=== PATIENT | male | born 1940 | race African-American/Black ===

== ENCOUNTER 2017-01-07 17:32 | Emergency (ER) | payer OTHER ==
--- NOTE | 2017-01-07 18:53 | PROVIDER DOCUMENTATION ---
HPI-Male Problem - General Chief Complaint: Urinary Retention Stated Complaint: BLOOD IN CATH Time Seen by Provider: 01/07/17 18:44 Source: patient Allergies/Adverse Reactions: Patient Allergies Allergy/AdvReac Type Severity Reaction Status Date / Time No Known Allergies Allergy Verified 01/07/17 17:36 Home Medications: Home Medication List Medication Instructions Recorded Confirmed Last Taken Type Enalapril Maleate 1 tab PO BID 01/07/17 01/07/17 01/07/17 History - History of Present Illness-Male Nature of Presenting Problem: 76 y/o AAM c family as historians, c/o blood from the delgado catheter. He has a history of prostate cancer, and has home health to come change his delgado weekly. Had it changed this morning and there has been nothing but blood flowing from it. Not currently on any blood thinners. Patient has advanced dementia and cannot answer any questios, including locations of pain Review of Systems - Adult - REVIEW OF SYSTEMS - ADULT ROS:: ROS per family Constitutional: reports: no symptoms reported. denies: chills, fever, fatique Eyes: reports: no symptoms reported. denies: decreased vision, blurred vision, double vision, eye pain Ears, Nose, Mouth & Throat: reports: no symptoms reported. denies: ear pain, nose pain, throat pain Cardiovascular: reports: no symptoms reported. denies: chest pain, palpitations Respiratory: reports: no symptoms reported. denies: cough, shortness of breath Gastrointestinal: reports: no symptoms reported. denies: abdominal pain, diarrhea, nausea, vomiting Genitourinary: reports: see HPI, hematuria Musculoskeletal: reports: no symptoms reported. denies: bone pain, back pain Integumentary: reports: no symptoms reported Neurological: reports: no symptoms reported. denies: headache/migraines Psychiatric: reports: no symptoms reported Endocrine: reports: no symptoms reported Hematologic/Lymphatic: reports: no symptoms reported Allergic/Immunologic: reports: no symptoms reported All Other Systems: Reviewed and Negative Past History - Adult - PAST MEDICAL HISTORY-ADULT Review of Records: reports: Old Records Reviewed, Nursing Assessment Review, Medications Reviewed Major Childhood Illnesses: reports: denies history Cardiovascular: reports: HTN Respiratory: reports: denies history Gastrointestinal: reports: denies history Genitourinary: reports: prostate cancer Musculoskeletal: reports: denies history 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) Endocrine/Immune: reports: denies history Other Conditions: reports: denies history - PRIOR SURGERIES/PROCEDURES Surgical/Procedure History: reports: none - IMMUNIZATION STATUS Childhood Immunizations: See Nurse Assessment Flu Vaccine: See Nurse Assessment - FAMILY HISTORY Family History: reviewed, not pertinent - SOCIAL HISTORY Smoking: denies Substance Use: none/never Alcohol Use Frequency: never Physical Exam-General - PHYSICAL EXAM-ADULT Initial Vital Signs Reviewed: Yes - CONSTITUTIONAL General Appearance: no apparent distress, thin - EYES Eyes: PERRL/EOMI, pink conjunctivae - HEAD, EARS, NOSE, MOUTH & THROAT HENMT: normocephalic/atraumatic - NECK Neck: normal inspection - RESPIRATORY Respiratory: chest non-tender, lungs clear, normal breath sounds, no pleuratic chest pain, no respiratory distress, no accessory muscle use. negative: respiratory distress, decreased breath sounds, accessory muscle use, crackles, rales, rhonchi, wheezing - CARDIOVASCULAR Cardiovascular: normal peripheral pulses, regular rate, rhythm - GASTROINTESTINAL (ABDOMEN) Abdominal Exam: normal bowel sounds, non tender, soft, no organomegaly, no pulsatile mass. negative: abnormal bowel sounds, distended, guarding, rigid, rebound, tenderness - GENITOURINARY Male Genitalia: other (no bleeding from the urethral meatus. There is gross hematuria from the delgado catheter in place) - MUSCULOSKELETAL Extremity: normal range of motion - SKIN Integumentary: normal color, normal turgor, warm/dry - NEUROLOGIC Neurologic: grossly normal, no motor/sensory deficits Progress - PLAN OF CARE/RESULTS Progress/Plan/Lab Results: Dr Everett brought to bedside on initial appearance, agreed we needed to call Dr. White before proceeding. Vital Signs Temp Pulse Resp BP Pulse Ox 01/07/17 22:00 92 H 18 154/065 01/07/17 17:37 98.2 F 114 H 18 160/94 99 No Known Allergies Allergy (Verified 01/07/17 17:36) NKDA Enalapril Maleate 1 tab PO BID 01/07/17 I&O 01/06/17 01/07/17 01/08/17 06:59 06:59 06:59 Output Total 0 Balance 0 Laboratory 01/07/17 01/07/17 01/07/17 19:05 19:05 18:55 WBC 11.24 H RBC 4.57 L Hgb 12.5 L Hct 38.5 L MCV 84.2 MCH 27.4 MCHC 32.5 L RDW Std Deviation 14.7 H Plt Count 478 H MPV 8.8 Immature Gran % (Auto) 0.2 Neut % (Auto) 84.0 H Lymph % (Auto) 9.2 L [place] % (Auto) 6.1 Eos % (Auto) 0.2 Baso % (Auto) 0.3 Immature Gran # (Auto) 0.02 Neut # (Auto) 9.45 H Lymph # (Auto) 1.03 L [place] # (Auto) 0.69 H Eos # (Auto) 0.02 Baso # (Auto) 0.03 Sodium 143 Potassium 3.6 Chloride 107 Carbon Dioxide 20 L Anion Gap 17 BUN 13 Creatinine 1.5 H Estimated GFR/1.73 m2 45 BUN/Creatinine Ratio 9 Glucose 101 Calculated Osmolality 285 Calcium 8.9 Total Bilirubin 0.30 AST 20 ALT 20 Alkaline Phosphatase 92 Total Protein 7.2 Albumin 3.5 Globulin 4.0 Albumin/Globulin Ratio 1.0 Urine Source CATH Orders Category Date Time Status Bladder Scan and Record Result ORDERED Care 01/07/17 18:30 Active Delgado Cath Discontinuation ONCE Care 01/07/17 19:02 Active Delgado Cath Insertion ORDERED Care 01/07/17 19:02 Active Misc. NRSG Communication Order DIRECTED Care 01/07/17 21:07 Active Saline Loc NOW Care 01/07/17 18:48 Active CBC WITH ELECTRONIC DIFF [HEME] Stat Lab 01/07/17 19:05 Completed CMP [COMPREHENSIVE METABOLIC PANEL] [CHEM] Stat Lab 01/07/17 19:05 Completed UA [URINALYSIS PL W/POSS RFLX CULT] [URINALYSIS] Stat Lab 01/07/17 18:55 Results 0.9% Sodium Chloride Inj [Ns] 250 ml Med 01/07/17 20:57 Discontinued .ROUTE As Directed 0.9% Sodium Chloride Inj [Ns] 250 ml Med 01/07/17 23:41 Discontinued IV As Directed Lidocaine 2% Jelly Appl [Xylocaine 2% Jelly Uroject] Med 01/07/17 19:44 Discontinued 10 ml .ROUTE .STK-MED ONE - REASSESSMENT Reassessment #1 Time Reassessed: 21:08 (after new delgado inserted, flushed, no longer bleeding. will f/u with urology ) Status: improving - CONSULTS/PCP/HOSPITALIST Notification #1 *Consult/PCP/Hospitalist*: Dr. White Time Discussed: 19:07 Reason/Comments: gross hematuria with delgado Consult Disposition: other (remove current delgado, place a new one, go past the hub, flush well with NS) Departure - Departure Time of Disposition Order: 21:08 DIAGNOSIS: Hematuria Delgado catheter problem Qualifiers: Encounter type: initial encounter Qualified Code(s): T83.9XXA - Unspecified complication of genitourinary prosthetic device, implant and graft, initial encounter Disposition: HOME 01 Certified Medical Emergency: Emergent Condition: Stable Additional Instructions: Follow up with your urologist, Dr. Neves ED Follow Up Instructions: You have been treated by a care provider in the Emergency Department. These instructions are being provided to you so you can have an understanding of how to care for yourself upon discharge. Upon discharge from the Emergency Department, you are responsible for making arrangements for follow-up care by a physician of your choice. Take all prescribed medications as directed. Return to the Emergency Department immediately for any new or worsening symptoms. You may call the Physician Referral phone number at [phone] to obtain a list of Physicians who are taking new patients. Referrals: Kai Morales MD [Primary Care Provider] - Rodney Neves MD [STAFF PHYSICIAN] - Instructions: Delgado Catheter Care, Adult, [id number], Hematuria, Adult Attestation - Physician/ KIMBERLEY Attestation Patient care was provided by Advanced Practice Provider:: Yes Advanced Practice Provider:: Jazmin Epstein Advanced Practice Provider documentation review:: The Mid-level provider documentation, treatment plan and medical decision making was reviewed by the physician who agrees with all treatment and medical decision making by the MLP. The physician spent face to face time with patient:: Yes Advanced Practice Provider documentation review:: The physician spent face to face time with this patient and agrees with all MLP documentation, treatment, and medical decision making by the MLP. See provider notes for further information.
[2017-01-07 19:11] LABS: MANUAL DIFF NEEDED? NO
[2017-01-07 19:15] LABS: BASO% 0.3 % (0.0-0.8); EOS# 0.02 X1000 (0.0-0.7); EOS% 0.2 % (0.0-10.0); HEMATOCRIT 38.5 % (42.0-52.0); HEMOGLOBIN 12.5 g/dL (14.0-18.0); IMM GRAN# 0.02 X1000 (0.0-0.04); IMM GRAN% 0.2 % (0.0-0.5); LYMPH# 1.03 X1000 (1.2-3.4); LYMPH% 9.2 % (20.5-51.1); MCH 27.4 PG (27-31); MCHC 32.5 g/dL (33-37); MCV 84.2 FL (81-99); MONO# 0.69 X1000 (0.11-0.59); MONO% 6.1 % (1.7-9.3); MPV 8.8 FL (7.4-10.4); PLT 478 X1000 (130-400); RBC 4.57 XMIL (4.7-6.1)
[2017-01-07] MEDS ORDERED: XYLOCAINE 2% JELLY UROJECT ONE (19:44)
[2017-01-07 19:54] LABS: ALBUMIN 3.5 g/dL (3.5-5.0); CALCIUM 8.9 mg/dL (8.8-10.2); POTASSIUM 3.6 mmol/L (3.5-5.1); TOTAL BILIRUBIN 0.3 mg/dL (0.20-1.00); TOTAL PROTEIN 7.2 g/dL (6.3-8.3)
[2017-01-07] MEDS ORDERED: NS 250 ML ONE (20:57)
[2017-01-07] MEDS ORDERED: NS 250 ML IV ONE (23:41)
[2017-01-07 23:49] VITALS: BP 154/065
== END 2017-01-07 22:00 | disposition home or self-care (01) ==
LOC: P.ED 17:32
DX: R31.0 Gross hematuria (principal); T83.9XXA Unspecified complication of genitourinary prosthetic device, implant and graft, initial encounter; R33.9 Retention of urine, unspecified; I10 Essential (primary) hypertension; F03.90 Unspecified dementia, unspecified severity, without behavioral disturbance, psychotic disturbance, mood disturbance, and anxiety; F79 Unspecified intellectual disabilities; Z79.899 Other long term (current) drug therapy; Z85.46 Personal history of malignant neoplasm of prostate
CPT/HCPCS: 51702; 51798; 80053; 81001; 85025; 99283; J7050